=== PATIENT | male | born 1945 | race Caucasian/White ===

== ENCOUNTER 2022-07-20 11:42 | Emergency (ER) | payer MEDICARE, BC, SELFPAY ==
[2022-07-20 12:25] VITALS: BP 181/84; PULSE 69; RESP 18; TEMP 36.8; O2SAT 97; BMI 28.3
--- NOTE | 2022-07-20 14:53 | ED.WOUNDLAC ---
HPI - Wound/Laceration <Agustina Ornelas PA-C - Last Filed: 07/20/22 18:37> General Chief Complaint: Wound/Laceration Stated Complaint: fell lac on eyebrow Time Seen by Provider: 07/20/22 12:33 Source: patient Mode of arrival: Ambulatory History of Present Illness HPI narrative: 77-year-old male with past medical history diabetes, hypertension, not on blood thinners, presents to the ED status post a right brow laceration sustained just prior to arrival. Patient states that he was working on his boat, experienced a mechanical fall, face planted forward. Patient denies feeling unwell or lightheaded or dizzy prior to falling. No loss of consciousness. Patient was able to stand up and walk after the fall. Patient denies chest pain, shortness of breath, fever, chills, neck pain, headache, abdominal pain, lightheadedness, dizziness, syncope. Patient also complains of pain in his right hand along side the thumb. No numbness, tingling, weakness. Endorses full range of motion. Related Data Allergies Allergy/AdvReac Type Severity Reaction Status Date / Time codeine Allergy Verified 07/20/22 12:25 hydrocodone Allergy Verified 07/20/22 12:25 Review of Systems <Agustina Ornelas PA-C - Last Filed: 07/20/22 18:37> Review of Systems ROS Unobtainable: All systems reviewed & are unremarkable except as noted in HPI and below Constitutional Constitutional: Denies chills, Denies fatigue, Denies fever(s), Denies frequent falls, Denies lethargy and Denies weakness Eyes Eyes: Denies change in vision, Denies eye discharge, Denies irritation and Denies loss of vision ENT Ears, Nose, Mouth, and Throat: Denies change in voice, Denies dizziness, Denies neck pain, Denies sore throat and Denies throat swelling Cardiovascular Cardiovascular: Denies chest pain, Denies irregular heart rhythm, Denies lightheadedness, Denies palpitations, Denies dyspnea, Denies dyspnea on exertion and Denies orthopnea Respiratory Respiratory: Denies cough, Denies dyspnea, Denies dyspnea on exertion and Denies wheezing Gastrointestinal Gastrointestinal: Denies abdominal pain, Denies change in bowel habits, Denies diarrhea, Denies nausea and Denies vomiting Genitourinary Genitourinary: Denies hematuria, Denies flank pain, Denies urinary incontinence and Denies urinary urgency Musculoskeletal Musculoskeletal: Denies back pain, Denies muscle weakness, Denies neck pain, Denies numbness and Denies tingling Integumentary/Breasts Skin/Breast: Denies pruritus, Denies erythema, Denies rash and Reports wounds Neurologic Neurologic: Denies behavioral changes, Denies confusion, Denies dizziness, Denies frequent falls, Denies loss of vision, Denies numbness, Denies tingling and Denies weakness Psychiatric Psychiatric: Denies anxiety, Denies behavioral changes, Denies confusion, Denies depression, Denies homicidal ideation and Denies suicidal ideation Endocrine Endocrine: Denies fatigue, Denies flushing and Denies palpitations Hematologic/Lymphatic Hematologic/Lymphatic: Denies easy bruising Allergic/Immunologic Allergic/Immunologic: Denies urticaria, Denies throat swelling and Denies wheezing Patient History <Agustina Ornelas PA-C - Last Filed: 07/20/22 18:37> Social History Smoking Status: Never smoker Smoking Status: Never smoker alcohol intake frequency: 0-2 drinks per day Substance Use Type: does not use Exam <Agustina Ornelas PA-C - Last Filed: 07/20/22 18:37> Narrative Exam Narrative: Const General:?cooperative, healthy appearing and comfortable [facility] Head:?normal to inspection Ears:?hearing grossly normal bilaterally Nose:?external nose normal Face and sinus:?normal facial exam and sinuses nontender Mouth:?oral mucosae normal Throat:?posterior oropharynx normal Eyes General:?appearance normal, both eyes and all related structures Neck Neck:?normal visual inspection and no lymphadenopathy noted Resp Effort & Inspection:?normal respiratory effort Auscultation:?clear to auscultation bilaterally Cardio Rate:?regular rate Rhythm:?regular rhythm Integumentary 3 cm linear laceration to right brow. No underlying structures visualized. Bleeding controlled with pressure. Neuro General:?patient alert, patient awake and patient oriented x3 Initial Vital Signs Initial Vital Signs: Vital Signs Temperature 98.2 F 07/20/22 12:25 Pulse Rate 69 07/20/22 12:25 Respiratory Rate 18 07/20/22 12:25 Blood Pressure 181/84 H 07/20/22 12:25 Pulse Oximetry 97 01/09/23 12:25 Oxygen Delivery Method 07/20/22 12:25 <DO Mehdi Pressley Last Filed: 07/23/22 08:00> Initial Vital Signs Initial Vital Signs: Vital Signs Temperature 98.2 F 07/20/22 12:25 Pulse Rate 69 07/20/22 12:25 Respiratory Rate 18 07/20/22 12:25 Blood Pressure 181/84 H 07/20/22 12:25 Pulse Oximetry 97 07/20/22 12:25 Oxygen Delivery Method 07/20/22 12:25 Procedures <Agustina Ornelas PA-C - Last Filed: 07/20/22 18:37> Laceration Repair Laceration 1: Site: face Side (If applicable): right Size (cm): 3 Description: linear Depth: simple, single layer Local Anesthetic: lidocaine 1% Amount of anesthesia used (mL): 3 Pre-repair: wound explored, irrigated extensively and deep structures intact Skin layer closed with: vicryl Skin layer suture size: 5-0 Number of sutures: 5 Technique: simple, interrupted Course <JUSTYNA Orlando Last Filed: 07/20/22 18:37> Orders Ordered: Discontinued Medications Acetaminophen (Acetaminophen 325 Mg Tablet) 975 mg PO NOW ONE Stop: 07/20/22 17:12 Last Admin: 07/20/22 17:42 Dose: 975 mg Documented By: KRISHAN Lidocaine HCl (Lidocaine 1% (Pf) 5 Ml) 5 ml INJ NOW ONE Stop: 07/20/22 16:21 Last Admin: 07/20/22 17:41 Dose: 5 ml Documented By: KRISHAN Vital Signs Vital signs: Vital Signs - 8 hr 07/20/22 12:25 07/20/22 18:17 Temperature 98.2 F Pulse Rate 69 78 Respiratory Rate 18 16 Blood Pressure 181/84 H 159/89 H Pulse Oximetry 97 98 Oxygen Delivery Method Room Air Room Air <DO Mehdi Pressley Last Filed: 07/23/22 08:00> Orders Ordered: Discontinued Medications Acetaminophen (Acetaminophen 325 Mg Tablet) 975 mg PO NOW ONE Stop: 07/20/22 17:12 Last Admin: 07/20/22 17:42 Dose: 975 mg Documented By: KRISHAN Lidocaine HCl (Lidocaine 1% (Pf) 5 Ml) 5 ml INJ NOW ONE Stop: 07/20/22 16:21 Last Admin: 07/20/22 17:41 Dose: 5 ml Documented By: [facility] Vital Signs Vital signs: Vital Signs - 8 hr 07/20/22 12:25 07/20/22 18:17 Temperature 98.2 F Pulse Rate 69 78 Respiratory Rate 18 16 Blood Pressure 181/84 H 159/89 H Pulse Oximetry 97 98 Oxygen Delivery Method Room Air Room Air MDM - Wound/Laceration <Agustina Ornelas PA-C - Last Filed: 07/20/22 18:37> [facility] Narrative Medical decision making narrative: 77-year-old male with past medical history diabetes, hypertension, not on blood thinners, presents to the ED status post a right brow laceration sustained just prior to arrival. Concern for fracture/dislocation versus intracranial bleed versus laceration. CT head, CT facial bones, CT cervical spine, x-ray of right hand were obtained with no acute findings. Patient's laceration was repaired with 5 sutures. The sutures will need to be removed in 5-7 days. Signs of infection and wound care discussed with patient. Return to the ED if you note any signs of infection. Patient verbalized understanding. Corroborating data:n/a Data collected from:?patient ? Medical records reviewed:??None available for review ? Differential considered:??As above ? Exam documented above, pertinent findings include:? 3 cm linear laceration to the right brow ? Lab Test results independently reviewed as above. Pertinent findings: N/a ? Independently reviewed EKG as above: N/a ? Imaging studies independently reviewed: Yes ? Consultations: N/a ? Treatments: Laceration repair with sutures ? Re-evaluations: Patient stable in the ED, laceration well approximated, hemostasis achieved with repair ? Discussion: As above ? Diagnosis: Laceration ? Disposition: see below, along with detailed discharge instructions that have been reviewed with patient as well as indications for ED re-evaluation and additional outpatient follow up Discharge Plan Departure Patient Disposition: Home Clinical Impression: Laceration Instructions: DI for Laceration Repair Activity Restrictions/Additional Instructions: You were evaluated in the ED today for a brow laceration. Your CT head, CT facial bones, CT cervical spine x-ray, right hand x-ray were normal. You have a laceration that was sutured with 5 sutures. You will need the sutures removed in 5-7 days, for which you can go to your PCP an urgent care or return to the ED. Please watch for signs of infection including increasing redness, warmth, pain, discharge, swelling. If you notice signs of infection, please return to the ED as soon as possible. Please keep the wound clean and dry for the 1st 24 hours, following which you may wash with mild soap and water. Please ensure that it is completely dry before you apply a nonstick dressing to the wound. Referrals: Dustin Fuller MD [Primary Care Provider] - Stand Alone Forms: Patient Portal/API <Becky Pedro DO - Last Filed: 07/23/22 08:00> Cosign ED Attending Elvi Attestation: I was immediately available in the department for consultation. Documentation has been reviewed. I agree with assessment and plan.
--- NOTE | 2022-07-20 14:58 | DI.CT.S_ITS ---
PROCEDURE: CT FACIAL BONES WO CON INDICATIONS: Fall TECHNIQUE: Noncontrast 2.5 mm thick axial images acquired from the mandible through the frontal sinuses, with coronal and sagittal reformatting. For radiation dose reduction, the following was used: automated exposure control, adjustment of mA and/or kV according to patient size. COMPARISON: [facility], CT, CT HEAD/BRAIN WO CON, 07/20/2022, 15:18. [facility], CT, CT CERVICAL SPINE WO CON, 07/20/2022, 15:18. [facility], CR, XR HAND RT MIN 3V, 07/20/2022, 15:09. FINDINGS: Image quality: Excellent. Bones and teeth: Mildly displaced nasal bone fractures are seen, which are age indeterminate. No acute nasal septal fracture is seen. There is chronic moderate rightward nasal septal deviation. Orbital martinez are intact. Sinus martinez show no fracture or deformity. Visualized portions of the mandible demonstrate no fractures or subluxation. Zygomatic arches are intact. Pterygoid plates are intact. Visualized portions of the skull base and auditory canals are intact. Sinuses: Moderate mucosal thickening is seen involving the anterior ethmoid air cells. Mucous retention cysts are seen within the maxillary sinuses. Small bilateral dodie bullosa can be seen. Soft tissues: Right forehead scalp hematoma is seen. Vascular: Visualized vascular structures appear normal in the absence of contrast. Bony vascular foramina and canals are intact. IMPRESSION: Right forehead scalp hematoma. Age-indeterminate nasal bone fractures. Dictated by: Anders Zepeda M.D. on 07/20/2022 at 14:47 Approved by: Anders Zepeda M.D. on 07/20/2022 at 14:50
--- NOTE | 2022-07-20 14:58 | DI.CT.S_ITS ---
PROCEDURE: CT CERVICAL SPINE WO CON INDICATIONS: Fall TECHNIQUE: Noncontrast 3 mm thick sections acquired from the skull base to the T4 level. Sagittal and coronal reformats were then constructed. For radiation dose reduction, the following was used: automated exposure control, adjustment of mA and/or kV according to patient size. COMPARISON: [facility], CT, CT HEAD/BRAIN WO CON, 07/20/2022, 15:18. [facility], CT, CT FACIAL BONES WO CON, 07/20/2022, 15:18. [facility], CR, XR HAND RT MIN 3V, 07/20/2022, 15:09. FINDINGS: Image quality: This examination is somewhat limited by quantum mottle artifact. Bones: No fractures or dislocations. Visualized superior ribs are intact. Focal degenerative change is seen involving the C1-C2 interface anteriorly. Moderate disc space narrowing can be seen at C3-C4, with moderate to severe disc space narrowing at C4-C5 and C5-C6. Posteriorly directed endplate osteophytes are seen at C4-C5 and C5-C6. Soft tissues: Prevertebral soft tissues are normal in thickness. No paravertebral hematomas. No apical pneumothoraces. IMPRESSION: Negative for fracture. Underlying degenerative changes are seen. Dictated by: Anders Zepeda M.D. on 07/20/2022 at 14:52 Approved by: Anders Zepeda M.D. on 07/20/2022 at 14:53
--- NOTE | 2022-07-20 14:58 | DI.CT.S_ITS ---
PROCEDURE: CT HEAD/BRAIN WO CON INDICATIONS: Fall TECHNIQUE: Noncontrast 4.5 mm thick angled axial sections acquired from the foramen magnum to the vertex, with coronal and sagittal reformats. For radiation dose reduction, the following was used: automated exposure control, adjustment of mA and/or kV according to patient size. COMPARISON: [facility], CT, CT FACIAL BONES WO CON, 07/20/2022, 15:18. [facility], CT, CT CERVICAL SPINE WO CON, 07/20/2022, 15:18. [facility], CR, XR HAND RT MIN 3V, 07/20/2022, 15:09. FINDINGS: Image quality: Excellent. CSF spaces: Basal cisterns are patent. No extra-axial fluid collections. The ventricles are symmetric in size and shape. Brain: No intracranial bleeds or masses. There is cerebral volume loss for age, with resultant ventricular and sulcal prominence. There are periventricular and deep white matter chronic small vessel ischemic changes. There is intracranial internal carotid artery atherosclerosis. Skull and face: A right forehead scalp hematoma is seen. No associated fracture is seen. Age indeterminate nasal bone fractures are seen. Sinuses: Visualized sinuses and mastoids are clear. IMPRESSION: Right forehead scalp hematoma, without an associated fracture. Age-indeterminate nasal bone fractures are seen. No acute intracranial hemorrhage is seen. No acute intracranial process is seen. Dictated by: Anders Zepeda M.D. on 07/20/2022 at 14:51 Approved by: Anders Zepeda M.D. on 07/20/2022 at 14:52
--- NOTE | 2022-07-20 15:11 | DI.RAD.S_ITS ---
PROCEDURE: XR HAND RT MIN 3V INDICATIONS: fall TECHNIQUE: 3 views of the hand(s) acquired. COMPARISON: None. FINDINGS: Bones: No fractures or dislocations. Osteoarthritic changes are noted throughout right hand and wrist joints most notably at 5th DIP joint. Carpal bones are normally aligned. No suspicious bony lesions. Soft tissues: No suspicious soft tissue calcifications. IMPRESSION: No acute right hand fracture or dislocation. 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 Dictated by: Roger Mccann M.D. on 07/20/2022 at 15:44 Approved by: Roger Mccann M.D. on 07/20/2022 at 15:45
[2022-07-20] MEDS: LIDOCAINE 1% (PF) 5 ML INJ (17:41)
[2022-07-20] MEDS: ACETAMINOPHEN 325 MG TABLET 975 MG PO (17:42)
[2022-07-20 18:17] VITALS: BP 159/89; PULSE 78; RESP 16; O2SAT 98
== END 2022-07-20 18:18 | disposition home or self-care (01) ==
PROVIDERS: Emergency Provider Student in an Organized Health Care Education/Training Program; PCP Specialist
DX: S01.111A Laceration without foreign body of right eyelid and periocular area, initial encounter (principal); W18.30XA Fall on same level, unspecified, initial encounter
CPT/HCPCS: 12013; 70450; 70486; 72125; 73130; 99283; 99284